=== PATIENT | female | born 1945 | race Caucasian/White ===

== ENCOUNTER 2024-04-21 14:19 | Observation (INO) ==
--- NOTE | 2024-04-21 14:44 | Emergency Department Note ---
HPI - Chest Pain General Chief Complaint: Chest Pain Stated Complaint: CHEST PAIN Time Seen by Provider: 04/21/24 14:39 Source: patient and family Mode of arrival: walk-in Limitations: no limitations History of Present Illness HPI narrative: This is a 78 year old female patient that presents to the ER with c/o substernal chest pain that comes and goes since last night. Patient denies any SOB, back pain, abdominal pain, fever, chills, numbness, tingling or weakness. Patient states she took a [employer] to ER and the chest pain is gone now MD complaint: Reports chest pain Pertinent past history: Reports coronary artery disease Onset (ago): day(s) (2) Timing of current episode: Reports episodic Prior episodes: Yes Onset: Reports during rest Pain location: Reports substernal Pain radiation: Reports none Severity: mild Quality: Reports tightness Relieving factors: Reports nitroglycerin Exacerbating factors: Reports nothing Treatment prior to arrival: Reports nitroglycerin Risk Factors Coronary artery disease risk factors: Reports hyperlipidemia and hypertension Thoracic aortic dissection risk factors: Reports none Pulmonary embolism risk factors: Reports none Related Data Home Medications Medication Instructions Recorded Confirmed atenolol 25 mg tablet 12.5 mg PO Q24H 09/05/23 09/05/23 buspirone 10 mg tablet 10 mg PO DAILY 09/05/23 09/05/23 clonazepam 1 mg tablet 2 mg PO BID 09/05/23 09/05/23 gabapentin 300 mg capsule 300 mg PO BID 09/05/23 09/05/23 isosorbide dinitrate 5 mg tablet 2.5 mg PO BID 09/05/23 09/05/23 levothyroxine 50 mcg tablet 50 mcg PO DAILY 09/05/23 09/05/23 quetiapine 200 mg tablet 200 mg PO DAILY 09/05/23 09/05/23 rosuvastatin 20 mg tablet 20 mg PO DAILY 09/05/23 09/05/23 Allergies Allergy/AdvReac Type Severity Reaction Status Date / Time Sulfa (Sulfonamide Allergy Mild Nausea Verified 04/21/24 14:32 Antibiotics) Penicillins Allergy Verified 04/21/24 14:32 Review of Systems Status of ROS 10 or more systems reviewed and unremark able except as noted in history and below Constitutional Denies: fever, chills, change in weight, fatigue, malaise or night sweats Eyes Denies: change in vision, blind spots, light sensitivity or eye discomfort Ears, nose, mouth, and throat Denies: throat pain, neck pain, throat swelling, difficulty swallowing, hoarseness or mouth pain Cardiovascular Reports: chest pain; Denies: palpitations, edema, swelling of feet/ankles, lightheadedness, shortness of breath with exertion, shortness of breath when lying down, leg pain with exertion or bluish discoloration of hands/feet Respiratory Denies: shortness of breath, cough, wheezing, stridor, pain on inspiration or change in phlegm color Gastrointestinal Denies: abdominal pain, nausea, vomiting, coffee grounds in vomit or heartburn Genitourinary Denies: painful urination, urinary frequency or urinary urgency Musculoskeletal Denies: back pain, neck pain, extremity pain, extremity swelling, joint pain or limited range of motion Integumentary/Breast Denies: rash, itching, redness, skin pain, skin tenderness, skin swelling, sores, new lesion or changing lesion Neurological Denies: headache, numbness in extremities, weakness in extremities, lack of coordination, dizziness or vertigo Psychiatric Denies: anxiety, mood swings, panic attacks, change in sleep pattern, hopelessness or loss of interest Endocrine Denies: excessive urination, excessive thirst, fatigue, cold intolerance, excessive sweating or flushing Hematologic/Lymphatic Denies: easy bruising, easy bleeding or enlarged lymph nodes Allergic/Immunologic Denies: hives, throat swelling, tongue swelling, facial swelling, wheezing or itchy eyes Exam Constitutional: normal general appearance and no apparent distress Vital Signs - 24 hr 04/21/24 14:22 04/21/24 14:31 Temperature 98 F Pulse Rate 94 H Respiratory Rate 18 Blood Pressure 128/78 Pulse Oximetry 97 97 Oxygen Delivery Me thod Room Air Room Air HENMT: normocephalic, head/scalp atraumatic, hearing grossly normal bilaterally, external ears normal, nasal mucous membranes normal, external nose normal, oral mucous membranes normal and oropharynx normal Eyes: PERRL, EOMs intact bilaterally, conjunctivae normal and no scleral icterus Neck/C-Spine: visual inspection normal and trachea midline Lymph: no lymphadenopathy noted Chest: inspection of chest normal and palpation of chest normal Respiratory: breath sounds equal bilaterally, normal respiratory effort, clear to auscultation bilaterally, no wheezes, no rales, no retractions, no use of accessory muscles and chest percussion normal Cardiovascular: normal heart rate noted, regular rhythm noted, no gallop, no rub, no murmur, no JVD, no clicks, peripheral pulses 2+ throughout and no additional abnormal heart sounds Gastrointestinal: abdomen normal to inspection, abdomen soft to palpation, nontender to palpation, nontender to percussion, nondistended, normoactive bowel sounds, no hepatosplenomegaly, no masses, no pulsatile mass, no ascites and no hernia Genitourinary: no CVA tenderness Back/Pelvis: spine normal to inspection Extremities: normal to inspection, normal to palpation, no tenderness, full ROM, no joint enlargement and no deformity Neurology: no movement abnormality noted, no focal motor deficit noted, no sensory deficits noted, speech normal, coordination normal, no pronator drift noted, no fasciculations noted and GCS normal Psychiatry: mental status grossly normal, oriented x3, thought process normal, cooperative and affect normal Skin: skin color normal Course Course Hospital Course: 1520: Due to risk factors, ongoing chest pain, heart score of 7 will admit patient to the hospital for further evaluation and treatment. VSS. no s/s of acute distress noted Vital Signs Vital signs: Vital Signs Pulse Oximetry 97 04/21/24 14:22 Oxygen Delivery Method Room Air 04/21/24 14:22 Temperature 98 F 04/21/24 14:31 Pulse Rate 94 H 04/21/24 14:31 Respiratory Rate 18 04/21/24 14:31 Blood Pressure 128/78 04/21/24 14:31 Pulse Oximetry 97 04/21/24 14:31 Oxygen Delivery Method Room Air 04/21/24 14:31 MDM - Chest Pain Differential Diagnosis Differential diagnosis: Likely atypical chest pain Medical Records Data Attestation: I reviewed the patient's medical records. Lab Data Attestation: I reviewed the patient's lab results. Labs: Lab Results 04/21/24 Range/Units 14:27 WBC 7.0 (4.3-9.3) K/uL RBC 4.0 (4.00-5.50) M/uL Hgb 13.1 (12.5-15.8) gm/dL Hct 40.1 (35.9-46.7) % MCV 101.3 H (81.0-93.7) fl MCH 33.2 H (27.6-32.2) pg MCHC 32.8 L (33.1-35.3) g/dl RDW 15.2 H (11.4-14.2) % Plt Count 214 (152-353) K/uL MPV 6.7 L (6.9-10.8) fl Gran % 49.1 (47.8-71.3) % Lymph % (Auto) 36.8 (20.0-43.0) % [place] % (Auto) 9.8 (3.6-9.8) % Eos % (Auto) 3.8 H (0.4-2.8) % Baso % (Auto) 0.5 (0.1-0.85) Lymph # (Auto) 2.6 (1.1-3.1) [place] # (Auto) 0.7 L (1.1-3.1) Eos # (Auto) 0.3 H (0.0-0.2) Baso # (Auto) 0.0 (0.0-0.1) Absolute Gran (auto) 3.5 (2.3-6.0) D-Dimer 215 (100-600) ng/mL Sodium 136 (136-145) mmol/L Potassium 4.2 (3.6-5.2) mmol/L Chloride 102.0 (98-107) mmol/L Carbon Dioxide 26 (21-32) mmol/L Anion Gap 8.0 (4-14) mEq/L BUN 21 H (7-18) mg/dL Creatinine 1.1 (0.6-1.3) mg/dL Estimated GFR 52.1 (>59.9) Glucose 116 H (70-110) mg/dL Calcium 8.7 (8.5-10.1) mg/dL Total Bilirubin 0.25 (0.0-1.0) mg/dL AST 24 (15-37) U/L ALT 33 (30-65) U/L Alkaline Phosphatase 69 (50-136) U/L Troponin I High Sens 7.30 (4.0-60.4) ng/L Total Protein 7.0 (6.4-8.2) g/dL Albumin 3.4 (3.4-5.0) g/dL Imaging Data Imaging ordered: Chest x-ray Attestation: I have reviewed the pertinent imaging results. ECG Data Attestation: I have reviewed the pertinent ECG results. Discharge Plan Discharge Patient Disposition: Admitted As Observation Condition: Stable Chief Complaint: Chest Pain Clinical Impression: Chest pain Prescriptions: No Action quetiapine 200 mg tablet 200 mg PO DAILY clonazepam 1 mg tablet 2 mg PO BID atenolol 25 mg tablet 12.5 mg PO Q24H levothyroxine 50 mcg tablet 50 mcg PO DAILY buspirone 10 mg tablet 10 mg PO DAILY gabapentin 300 mg capsule 300 mg PO BID isosorbide dinitrate 5 mg tablet 2.5 mg PO BID rosuvastatin 20 mg tablet 20 mg PO DAILY Print Language: [place] Referrals: Dewey Bhatti [Primary Care Provider] - Time of Disposition: 15:22 [facility] Medical History (Updated 04/21/24 @ 14:56 by Rachel Blackman RN) Depression Hypothyroidism Surgical History (Updated 04/21/24 @ 14:56 by Rachel Blackman RN) Hx of CABG Social History Smoking status: never smoker Problems where you live: no known problems Highest level of school completed/degree received: College Little interest or pleasure in doing things: not at all Feeling down, depressed, or hopeless: not at all Feel stressed/tense/nervous/anxious/difficulty sleeping: not at all Due to disability, difficulty making decisions: No
[2024-04-21 14:49] LABS: Basophils%(Percent) Auto 0.5 (0.1-0.85); Eosinophils#(Absolute)Auto 0.3 (0.0-0.2); Eosinophils%(Percent) Auto 3.8 % (0.4-2.8); Granulocytes % - Auto 49.1 % (47.8-71.3); Granulocytes#(Absolute)- Auto 3.5 (2.3-6.0); Hematocrit 40.1 % (35.9-46.7); Mean Corpuscular Volume 101.3 fl (81.0-93.7); Monocytes #(Absolute)- Auto 0.7 (1.1-3.1); Monocytes %(Percent)- Auto 9.8 % (3.6-9.8); Platelet Count 214 K/uL (152-353)
[2024-04-21] MEDS ORDERED: ASPIRIN 81 MG TAB.CHEW ONE (14:58)
[2024-04-21] MEDS: ASPIRIN 81 MG TAB.CHEW PO ONE (14:58)
[2024-04-21 14:59] LABS: Potassium 4.2 mmol/L (3.6-5.2)
[2024-04-21] MEDS ORDERED: 0.9 % SODIUM CHLORIDE 1000 ML 1,000 ML IV ONE (19:26)
[2024-04-21] MEDS: 0.9 % SODIUM CHLORIDE 1000 ML 1,000 ML IV SCH (19:27)
[2024-04-21] MEDS ORDERED: PANTOPRAZOLE SODIUM 40 MG VIAL ONE (19:38)
[2024-04-21] MEDS ORDERED: ENOXAPARIN SODIUM 80 MG/0.8 ML SYRINGE SUBQ ONE (19:38)
[2024-04-21] MEDS: ENOXAPARIN SODIUM 80 MG/0.8 ML SYRINGE SUBQ SCH (19:38)
[2024-04-21] MEDS: PANTOPRAZOLE SODIUM 40 MG TABLET.DR PO SCH (19:39)
[2024-04-22] MEDS ORDERED: ISOSORBIDE DINITRATE 5 MG PO SCH (04:21)
[2024-04-22] MEDS ORDERED: ATENOLOL 25 MG PO SCH (04:21)
[2024-04-22] MEDS ORDERED: MORPHINE SULFATE 2 MG/ML CARTRIDGE IV PRN (04:21)
[2024-04-22 04:52] LABS: Basophils%(Percent) Auto 0.5 (0.1-0.85); Eosinophils#(Absolute)Auto 0.2 (0.0-0.2); Eosinophils%(Percent) Auto 3.7 % (0.4-2.8); Granulocytes % - Auto 40.8 % (47.8-71.3); Granulocytes#(Absolute)- Auto 2.1 (2.3-6.0); Hematocrit 36.3 % (35.9-46.7); Mean Corpuscular Volume 101.5 fl (81.0-93.7); Monocytes #(Absolute)- Auto 0.5 (1.1-3.1); Monocytes %(Percent)- Auto 9.4 % (3.6-9.8); Platelet Count 167 K/uL (152-353); White Blood Count 5.2 K/uL (4.3-9.3)
[2024-04-22] MEDS ORDERED: ISOSORBIDE DINITRATE 10 MG TABLET PO SCH (05:00)
[2024-04-22 05:10] LABS: INR 0.96
[2024-04-22] MEDS: GABAPENTIN 300 MG CAPSULE PO SCH (06:07)
[2024-04-22] MEDS: ISOSORBIDE DINITRATE 10 MG TABLET PO SCH (06:07)
[2024-04-22] MEDS: NITROGLYCERIN 1 GM OINT...G. TD SCH ×2 (06:27→12:37)
[2024-04-22 07:59] VITALS: PULSE 65; RESP 19
[2024-04-22] MEDS ORDERED: NON-FORMULARY MEDICATION 1 EACH (Rosuvastatin 20 mg tablet) PO SCH (09:00)
[2024-04-22] MEDS: atenoloL 50 MG TABLET PO SCH (09:32)
[2024-04-22] MEDS: LEVOTHYROXINE SODIUM 50 MCG TABLET PO SCH (09:32)
[2024-04-22] MEDS: ATORVASTATIN CALCIUM 40 MG TABLET PO SCH (09:32)
[2024-04-22] MEDS: ASPIRIN 81 MG TAB.CHEW PO SCH (09:34)
--- NOTE | 2024-04-22 10:49 | History & Physical Report ---
H&P: HPI History of Present Illness Chief complaint: CHEST PAIN Narrative: This is a 78 year old female patient that presents to the ER with c/o substernal chest pain that comes and goes since last night. Patient denies any SOB, back pain, abdominal pain, fever, chills, numbness, tingling or weakness. Patient st ates she took a [employer] to ER and the chest pain is gone now. Admitted patient to med/surg for further observation and treatment. Review of Systems Status of ROS 10 or more systems reviewed and unremark able except as noted in history and below Constitutional Denies: fever, chills, change in weight, fatigue, malaise or night sweats Eyes Denies: change in vision, blind spots, light sensitivity or eye discomfort Ears, nose, mouth, and throat Denies: throat pain, neck pain, throat swelling, difficulty swallowing, hoarseness, mouth pain or vertigo Cardiovascular Reports: chest pain; Denies: palpitations, edema, swelling of feet/ankles, lightheadedness, shortness of breath with exertion, shortness of breath when lying down, leg pain with exertion or bluish discoloration of hands/feet Respiratory Denies: shortness of breath, cough, wheezing, stridor, pain on inspiration or change in phlegm color Gastrointestinal Denies: abdominal pain, nausea, vomiting, coffee grounds in vomit, heartburn or difficulty swallowing Genitourinary Denies: painful urination, urinary frequency or urinary urgency Musculoskeletal Denies: back pain, neck pain, extremity pain, extremity swelling, joint pain or limited range of motion Integumentary/Breast Denies: rash, itching, redness, skin pain, skin tenderness, skin swelling, sores, new lesion or changing lesion Neurological Denies: headache, numbness in extremities, weakness in extrem ities, lack of coordination, dizziness or vertigo Psychiatric Denies: anxiety, mood swings, panic attacks, change in sleep pattern, hopelessness or loss of interest Endocrine Denies: excessive urination, excessive thirst, fatigue, cold intolerance, excessive sweating or flushing Hematologic/Lymphatic Denies: easy bruising, easy bleeding or enlarged lymph nodes Allergic/Immunologic Denies: hives, throat swelling, tongue swelling, facial swelling, wheezing or itchy eyes [facility] Medical History (Updated 04/23/24 @ 09:41 by Elise Ellis DO) Anemia Depression Hypothyroidism Surgical History (Updated 04/22/24 @ 09:47 by MIRIAM Márquez) Hx of CABG Social History Smoking status: never smoker Problems where you live: no known problems Highest level of school completed/degree received: decline to answer Little interest or pleasure in doing things: not at all Feeling down, depressed, or hopeless: not at all Feel stressed/tense/nervous/anxious/difficulty sleeping: not at all Due to disability, difficulty making decisions: No Gender Identity: female Meds Home Medications and Allergies Home Medications Medication Instructions Recorded Confirmed Type atenolol 25 mg tablet 12.5 mg PO Q24H 09/05/23 09/05/23 History buspirone 10 mg tablet 10 mg PO DAILY 09/05/23 09/05/23 History clonazepam 1 mg tablet 2 mg PO BID 09/05/23 09/05/23 History gabapentin 300 mg capsule 300 mg PO BID 09/05/23 09/05/23 History isosorbide dinitrate 5 mg tablet 2.5 mg PO BID 09/05/23 09/05/23 History levothyroxine 50 mcg tablet 50 mcg PO DAILY 09/05/23 09/05/23 History quetiapine 200 mg tablet 200 mg PO DAILY 09/05/23 09/05/23 History rosuvastatin 20 mg tablet 20 mg PO DAILY 09/05/23 09/05/23 History aspirin 81 mg tablet,delayed 81 mg PO DAILY htn #90 tabs 04/22/24 Rx release Allergies Allergy/AdvReac Type Severity Reaction Status Date / Time Sulfa (Sulfonamide Allergy Mild Nausea Verified 04/21/24 14:32 Antibiotics) Penicillins Allergy Verified 04/21/24 14:32 Exam Exam: Patient arrived to med/surg alert & oriented. Constitutional: normal general appearance and no apparent distress Vital Signs - 24 hr 04/21/24 14:22 04/21/24 14:31 04/21/24 14:58 Temperature 98 F Pulse Rate 94 H 90 Respiratory Rate 18 18 Blood Pressure 128/78 117/89 Pulse Oximetry 97 97 97 Oxygen Delivery Me thod Room Air Room Air Room Air 04/21/24 15:32 04/21/24 16:00 Temperature Pulse Rate 91 H 91 H Respiratory Rate 18 18 Blood Pressure 154/82 139/86 Pulse Oximetry 97 97 Oxygen Delivery Me thod Room Air Room Air HENMT: normocephalic, head/scalp atraumatic, hearing grossly normal bilaterally, external ears normal, nasal mucous membranes normal, external nose normal, oral mucous membranes normal and oropharynx normal Eyes: PERRL, EOMs intact bilaterally, conjunctivae normal and no scleral icterus Neck/C-Spine: visual inspection normal and trachea midline Lymph: no lymphadenopathy noted Chest: inspection of chest normal and palpation of chest normal Respiratory: breath sounds equal bilaterally, normal respiratory effort, clear to auscultation bilaterally, no wheezes, no rales, no retractions, no use of accessory muscles and chest percussion normal Cardiovascular: normal heart rate noted, regular rhythm noted, no gallop, no rub, no murmur, no JVD, no clicks, peripheral pulses 2+ throughout and no additional abnormal heart sounds Gastrointestinal: abdomen normal to inspection, abdomen soft to palpation, nontender to palpation, nontender to percussion, nondistended, normoactive bowel sounds, no hepatosplenomegaly, no masses, no pulsatile mass, no ascites and no hernia Genitourinary: no CVA tenderness Back/Pelvis: spine normal to inspection Extremities: normal to inspection, normal to palpation, no tenderness, full ROM, no joint enlargement and no deformity Neurology: no movement abnormality noted, no focal motor deficit noted, no sensory deficits noted, speech normal, coordination normal, no pronator drift noted, no fasciculations noted and GCS normal Psychiatry: mental status grossly normal, oriented x3, thought process normal, cooperative and affect normal Skin: skin color normal Assessment and Plan Assessment and Plan (1) Chest pain: Qualifiers: Chest pain type: unspecified Qualified Code(s): R07.9 - Chest pain, unspecified Code(s): R07.9 - Chest pain, unspecified (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 (3) Hypoalbuminemia: Code(s): E88.09 - Other disorders of plasma-protein metabolism, not elsewhere classified (4) HLD (hyperlipidemia): Qualifiers: Hyperlipidemia type: unspecified Qualified Code(s): E78.5 - Hyperlipidemia, unspecified Code(s): E78.5 - Hyperlipidemia, unspecified (5) HTN (hypertension): Qualifiers: Hypertension type: primary hypertension Qualified Code(s): I10 - Essential (primary) hypertension Code(s): I10 - Essential (primary) hypertension (6) Fatty liver: Code(s): K76.0 - Fatty (change of) liver, not elsewhere classified (7) Sleep apnea: Qualifiers: Sleep apnea type: unspecified type Qualified Code(s): G47.30 - Sleep apnea, unspecified Code(s): G47.30 - Sleep apnea, unspecified (8) Hx of CABG: Code(s): Z95.1 - Presence of aortocoronary bypass graft (9) Anemia: Assessment and Plan: iron studies negavtive Qualifiers: Anemia type: unspecified type Qualified Code(s): D64.9 - Anemia, unspecified Code(s): D64.9 - Anemia, unspecified Plan Sodium Chloride 1,000 mls @ 100 mls/hr IV CONT Enoxaparin Sodium 80 mg SUBQ Q12H Pantoprazole Sodium 40 mg PO DAILY Gabapentin 300 mg PO BID Levothyroxine Sodium 50 mcg PO DAILY Aspirin 324 mg PO DAILY Nitroglycerin 1 gm TD Q6H Isosorbide Dinitrate 2.5 mg PO BID Atenolol 12.5 mg PO DAILY Atorvastatin Calcium 40 mg PO DAILY Morphine Sulfate 2 mg IV Q4H PRN Results Labs Labs: CBC WBC 7.0 K/uL (4.3-9.3) 04/21/24 14:27 RBC 4.0 M/uL (4.00-5.50) 04/21/24 14:27 Hgb 13.1 gm/dL (12.5-15.8) 04/21/24 14:27 Hct 40.1 % (35.9-46.7) 04/21/24 14:27 MCV 101.3 fl (81.0-93.7) H 04/21/24 14:27 MCH 33.2 pg (27.6-32.2) H 04/21/24 14:27 MCHC 32.8 g/dl (33.1-35.3) L 04/21/24 14:27 RDW 15.2 % (11.4-14.2) H 04/21/24 14:27 Plt Count 214 K/uL (152-353) 04/21/24 14:27 MPV 6.7 fl (6.9-10.8) L 04/21/24 14:27 Gran % 49.1 % (47.8-71.3) 04/21/24 14:27 Lymph % (Auto) 36.8 % (20.0-43.0) 04/21/24 14:27 [place] % (Auto) 9.8 % (3.6-9.8) 04/21/24 14:27 Eos % (Auto) 3.8 % (0.4-2.8) H 04/21/24 14:27 Baso % (Auto) 0.5 (0.1-0.85) 04/21/24 14:27 Lymph # (Auto) 2.6 (1.1-3.1) 04/21/24 14:27 [place] # (Auto) 0.7 (1.1-3.1) L 04/21/24 14:27 Eos # (Auto) 0.3 (0.0-0.2) H 04/21/24 14:27 Baso # (Auto) 0.0 (0.0-0.1) 04/21/24 14:27 Absolute Gran (auto) 3.5 (2.3-6.0) 04/21/24 14:27 BMP Sodium 136 mmol/L (136-145) 04/21/24 14:27 Potassium 4.2 mmol/L (3.6-5.2) 04/21/24 14:27 Chloride 102.0 mmol/L (98-107) 04/21/24 14:27 Carbon Dioxide 26 mmol/L (21-32) 04/21/24 14:27 Anion Gap 8.0 mEq/L (4-14) 04/21/24 14:27 BUN 21 mg/dL (7-18) H 04/21/24 14:27 Creatinine 1.1 mg/dL (0.6-1.3) 04/21/24 14:27 Estimated GFR 52.1 (>59.9) 04/21/24 14:27 Glucose 116 mg/dL (70-110) H 04/21/24 14:27 Calcium 8.7 mg/dL (8.5-10.1) 04/21/24 14:27 Total Bilirubin 0.25 mg/dL (0.0-1.0) 04/21/24 14:27 AST 24 U/L (15-37) 04/21/24 14:27 ALT 33 U/L (30-65) 04/21/24 14:27 Alkaline Phosphatase 69 U/L (50-136) 04/21/24 14:27 Total Protein 7.0 g/dL (6.4-8.2) 04/21/24 14:27 Albumin 3.4 g/dL (3.4-5.0) 04/21/24 14:27 Cardiac Enzymes Troponin I High Sens 7.30 ng/L (4.0-60.4) 04/21/24 14:27 Liver Function Total Bilirubin 0.25 mg/dL (0.0-1.0) 04/21/24 14:27 AST 24 U/L (15-37) 04/21/24 14:27 ALT 33 U/L (30-65) 04/21/24 14:27 Alkaline Phosphatase 69 U/L (50-136) 04/21/24 14:27 Total Protein 7.0 g/dL (6.4-8.2) 04/21/24 14:27 Albumin 3.4 g/dL (3.4-5.0) 04/21/24 14:27 Imaging Imaging ordered: Chest x-ray Radiologist's impression: XR CHEST 1V Date of Service: 04/21/24 HISTORY: pain in chest today; cbn COMPARISON: November 27, 2020 FINDINGS: The trachea is midline. The cardiac silhouette is borderline in size status post CABG surgery. The lungs are clear without focal infiltrate or effusion. The bony thorax is unremarkable. IMPRESSION: No acute cardiopulmonary disease.
[2024-04-22 10:52] LABS: Urine Appearance CLEAR (CLEAR); Urine Blood NEGATIVE (NEG - TRACE); Urine Color YELLOW (STRAW/YELL.); Urine Urobilinogen Normal (NORMAL)
[2024-04-22 10:57] LABS: Amphetamine Screen Urine NEG. (NEGATIVE); Cannabinoid Screen Urine NEG. (NEGATIVE); Cocaine Screen Urine NEG. (NEGATIVE); Methadone Screen Urine NEG. (NEGATIVE); Opiate Screen Urine NEG. (NEGATIVE)
--- NOTE | 2024-04-22 11:06 | Discharge Summary ---
DS: Providers Provider Date of admission: 04/21/24 15:33 Primary care physician: Dewey Bhatti Admitting clinician: Nikkie Ricardo Attending physician on admission: Elise Ellis Attending physician on discharge: Elise Ellis Discharging clinician: Elise Ellis Anticipated date of discharge: 04/22/24 DS: Diagnosis Discharge Diagnosis (1) Chest pain: Qualifiers: Chest pain type: unspecified Qualified Code(s): R07.9 - Chest pain, unspecified (2) Hypoproteinemia: (3) Hypoalbuminemia: (4) HLD (hyperlipidemia): Qualifiers: Hyperlipidemia type: unspecified Qualified Code(s): E78.5 - Hyperlipidemia, unspecified (5) HTN (hypertension): Qualifiers: Hypertension type: primary hypertension Qualified Code(s): I10 - Essential (primary) hypertension (6) Fatty liver: (7) Sleep apnea: Assessment and plan: nutrition coordinator is arranging for a sleep study for the patient Qualifiers: Sleep apnea type: unspecified type Qualified Code(s): G47.30 - Sleep apnea, unspecified (8) Hx of CABG: (9) Anemia: Qualifiers: Anemia type: unspecified type Qualified Code(s): D64.9 - Anemia, unspecified Plan Discharge home for self care. DS: Summary Hospital Course Hospital Course: This is a 78 year old female patient that presents to the ER with c/o substernal chest pain that comes and goes since last night. Patient denies any SOB, back pain, abdominal pain, fever, chills, numbness, tingling or weakness. Patient states she took a [employer] to ER and the chest pain is gone now. Admitted patient to med/surg for further observation and treatment. Day two of hospital stay, patient reports chest pain has resolved. Chest X-Ray Impression reports "No acute cardiopulmonary disease." EKG/ECG resulted "Sinus Rhythm." Patient is ready for discharge home for self care at this time. Follow up with PCP is recommended in 5-7 days of discharge. If symptoms worsen, contact PCP or return to Emergency Room. Status at Discharge Functional status at discharge: independent ambulation Overall status at discharge: patient is back to baseline Time Spent with Patient Time attestation: Total time spent providing and/or coordinating discharge services: Time spent: greater than 30 minutes Exam Exam: Patient is alert and oriented in rizo's position upon exam. Constitutional: normal general appearance, no apparent distress, abnormal body habitus (obese), no limitations and alert Vital Signs - 24 hr 04/21/24 14:22 04/21/24 14:31 04/21/24 14:58 Temperature 98 F Pulse Rate 94 H 90 Pulse Rate [Right Carotid] Respiratory Rate 18 18 Blood Pressure 128/78 117/89 Blood Pressure [Le ft Arm] Pulse Oximetry 97 97 [facility] Room [facility] Room Air 04/21/24 15:32 04/21/24 16:00 04/21/24 17:00 Temperature Pulse Rate 91 H 91 H 72 Pulse Rate [Right Carotid] Respiratory Rate 18 18 16 Blood Pressure 154/82 139/86 108/61 Blood Pressure [Le ft Arm] Pulse Oximetry 97 97 95 [facility] Room Air 04/21/24 18:00 04/21/24 18:22 04/21/24 19:01 Temperature Pulse Rate 71 62 69 Pulse Rate [Right Carotid] Respiratory Rate 16 14 15 Blood Pressure 98/70 123/70 100/73 Blood Pressure [Le ft Arm] Pulse Oximetry 96 97 97 [facility] Room Air 04/21/24 19:31 04/21/24 20:02 04/21/24 20:15 Temperature 98 F Pulse Rate 66 66 66 Pulse Rate [Right Carotid] Respiratory Rate 15 15 15 Blood Pressure 111/66 123/70 123/70 Blood Pressure [Le ft Arm] Pulse Oximetry 97 97 97 [facility] Room Air 04/21/24 20:30 04/21/24 20:45 04/22/24 07:57 Temperature 98.0 F 97.9 F Pulse Rate Pulse Rate [Right Carotid] 65 Respiratory Rate 20 19 Blood Pressure Blood Pressure [Le ft Arm] 134/82 156/74 Pulse Oximetry 95 95 [facility] Room Air Room Air 04/22/24 09:32 Temperature Pulse Rate 65 Pulse Rate [Right Carotid] Respiratory Rate Blood Pressure 154/74 Blood Pressure [Le ft Arm] Pulse Oximetry [facility] HENMT: normocephalic, head/scalp atraumatic, hearing grossly normal bilaterally, external ears normal, nasal mucous membranes normal, external nose normal, oral mucous membranes normal and oropharynx normal Eyes: PERRL, EOMs intact bilaterally, conjunctivae normal and no scleral icterus Neck/C-Spine: visual inspection normal and trachea midline Lymph: no lymphadenopathy noted Chest: inspection of chest normal and palpation of chest normal Respiratory: breath sounds equal bilaterally, normal respiratory effort, clear to auscultation bilaterally, no wheezes, no rales, no retractions, no use of accessory muscles and chest percussion normal Cardiovascular: normal heart rate noted, regular rhythm noted, no gallop, no rub, no murmur, no JVD, no clicks, peripheral pulses 2+ throughout and no additional abnormal heart sounds Gastrointestinal: abdomen normal to inspection, abdomen soft to palpation, nontender to palpation, nontender to percussion, nondistended, normoactive bowel sounds, no hepatosplenomegaly, no masses, no pulsatile mass, no ascites and no hernia Genitourinary: no CVA tenderness Back/Pelvis: spine normal to inspection Extremities: normal to inspection, normal to palpation, no tenderness, full ROM, no joint enlargement and no deformity Neurology: no movement abnormality noted, no focal motor deficit noted, no sensory deficits noted, speech normal, coordination normal, no pronator drift noted, no fasciculations noted and GCS normal Psychiatry: mental status grossly normal, oriented x3, thought process normal, cooperative and affect normal Skin: skin color normal DS: Data Data Completed and Pending Labs on day of discharge: Labs from last 24 hours 04/22/24 04/22/24 04/22/24 10:15 07:05 04:30 WBC 5.2 RBC 3.6 L Hgb 12.0 L Hct 36.3 MCV 101.5 H MCH 33.7 H MCHC 33.2 RDW 14.9 H Plt Count 167 MPV 6.7 L Gran % 40.8 L Lymph % (Auto) 45.6 H Wirt % (Auto) 9.4 Eos % (Auto) 3.7 H Baso % (Auto) 0.5 Lymph # (Auto) 2.4 Wirt # (Auto) 0.5 L Eos # (Auto) 0.2 Baso # (Auto) 0.0 Absolute Gran (auto) 2.1 L PT 13.3 PT Normal Control 13.7 INR 0.96 APTT 34.0 D-Dimer Sodium 140 Potassium 4.0 Chloride 105.0 Carbon Dioxide 29 Anion Gap 6.0 BUN 22 H Creatinine 1.2 Estimated GFR 46.9 Glucose 120 H Calcium 8.2 L Phosphorus 4.2 Magnesium 2.4 Total Bilirubin 0.19 AST 18 ALT 25 L Alkaline Phosphatase 59 Total Creatine Kinase 107 71 Troponin I High Sens 5.10 4.40 4.90 B-Natriuretic Peptide 29.9 Total Protein 5.8 L Albumin 2.8 L Lipase TSH 1.24 04/22/24 04/21/24 04/21/24 00:55 19:45 14:27 WBC 7.0 RBC 4.0 Hgb 13.1 Hct 40.1 MCV 101.3 H MCH 33.2 H MCHC 32.8 L RDW 15.2 H Plt Count 214 MPV 6.7 L Gran % 49.1 Lymph % (Auto) 36.8 Wirt % (Auto) 9.8 Eos % (Auto) 3.8 H Baso % (Auto) 0.5 Lymph # (Auto) 2.6 Wirt # (Auto) 0.7 L Eos # (Auto) 0.3 H Baso # (Auto) 0.0 Absolute Gran (auto) 3.5 PT PT Normal Control INR APTT D-Dimer 215 Sodium 136 Potassium 4.2 Chloride 102.0 Carbon Dioxide 26 Anion Gap 8.0 BUN 21 H Creatinine 1.1 Estimated GFR 52.1 Glucose 116 H Calcium 8.7 Phosphorus Magnesium Total Bilirubin 0.25 AST 24 ALT 33 Alkaline Phosphatase 69 Total Creatine Kinase Troponin I High Sens 4.80 7.80 7.30 B-Natriuretic Peptide Total Protein 7.0 Albumin 3.4 Lipase 43.0 TSH Imaging Chest x-ray: Radiologist's impression: XR CHEST 1V Date of Service: 04/21/24 HISTORY: pain in chest today; cbn COMPARISON: November 27, 2020 FINDINGS: The trachea is midline. The cardiac silhouette is borderline in size status post CABG surgery. The lungs are clear without focal infiltrate or effusion. The bony thorax is unremarkable. IMPRESSION: No acute cardiopulmonary disease. Discharge Plan Discharge Disposition: Home, Self-Care Condition: Improved Discharge Medications: New aspirin 81 mg tablet,delayed release (DR/EC) 81 mg PO DAILY Qty: 90 0RF Continued quetiapine 200 mg tablet 200 mg PO DAILY clonazepam 1 mg tablet 2 mg PO BID atenolol 25 mg tablet 12.5 mg PO Q24H levothyroxine 50 mcg tablet 50 mcg PO DAILY buspirone 10 mg tablet 10 mg PO DAILY gabapentin 300 mg capsule 300 mg PO BID isosorbide dinitrate 5 mg tablet 2.5 mg PO BID rosuvastatin 20 mg tablet 20 mg PO DAILY Discharge Orders: Discharge Order (Routine); Ordered 04/22/24 Ordered By: Elise Ellis Activity: increase activity as tolerated Diet: low fat, low cholesterol Interventions: Discharge Assessment Last Done: 04/22/24 12:47 MED/SURG & ICU Observation Charge Sheet Last Done: 04/22/24 12:51 Plan of Treatment: patient has a follow up appt time with cotton ball bagger and also has appt time for neurologist in [place]. Patient Instructions: Chest Pain (DC) Activity Restrictions/Additional Instructions: increase water intake and follow up with PCP and cardiology to access patient current cardiac risk and the chest pain medications if chest pain recurs or patient has any concerns or questions she can follow up in the ER or with her PCP as appropiate follow up Dr Guevara GI medicine reflux with espophagitis, Dr Bustos Cardiology, Dr Beck PCP, Neurology for dyskinesia Forms: Portal/Health Info Access Inst Follow-Ups: Dewey Bhatti [Primary Care Provider] - 04/29/24 1:15 pm Discharge Date/Time: 04/22/24 13:17
[2024-04-22 11:56] VITALS: TEMP 98.2
[2024-04-22 12:38] VITALS: BP 148/73
== END 2024-04-22 13:17 | disposition home or self-care (01) ==
LOC: ED 14:19 → MS 14:19
PROVIDERS: ADMIT Family Medicine; ATTEND Family Medicine